=== PATIENT | male | born 2005 | race African-American/Black ===

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

== ENCOUNTER 2023-01-31 13:56 | Emergency (ER) | payer OTHER, SELFPAY ==
[2023-01-31 14:40] LABS: Bilirubin Negative (Negative); Blood, Urine 1+ (Negative); CAUTI Indications for Culture Dysuria,urgency,freq; Clarity Extra Turbid (Clear); Glucose, Urine (Dipstick) Normal (Negative); Ketone, Urine Negative (Negative); Leukocyte 500 Leu/uL (Negative); Nitrite Negative (Negative); Protein, Urine (Dipstick) 50 mg/dL (Neg-Trace); RBC/HPF 21-50 HPF (0-3); Specific Gravity, Urine 1.034 (1.002-1.036); Squamous Epithelial None Seen HPF (0-3); Urobilinogen Normal mg/dL (Less than 2); WBC/HPF Greater than 50 HPF (0-3); pH, Urine 5.5 (5.0-9.0)
[2023-01-31 14:46] LABS: Bacteria/HPF 2+ HPF (None Seen)
[2023-01-31 14:47] LABS: Urine Culture Reflex Yes Yes
[2023-01-31] MEDS ORDERED: Azithromycin 250 MG TAB ONE (15:00)
[2023-01-31] MEDS ORDERED: Lidocaine 1% MPF 2 ML VIAL ONE (15:00)
[2023-01-31] MEDS ORDERED: cefTRIAXone (ROCEPHIN) 500 MG VIAL ONE (15:01)
[2023-02-01 17:04] LABS: Chlam.trachomatis by PCR,Urine DETECTED (NotDetected); GC N.gonorrhoeae PCR,UrineVOID DETECTED (NotDetected)
== END 2023-01-31 15:39 | disposition home or self-care (01) ==
LOC: ERS 13:56
DX: N34.2 Other urethritis (principal)
CPT/HCPCS: 81001; 87086; 87491; 87591; 96372; 99283; J0696

== ENCOUNTER 2024-02-22 16:01 | Emergency (ER) | payer SELFPAY ==
[2024-02-22] MEDS ORDERED: cefTRIAXone (ROCEPHIN) 500 MG VIAL ONE (16:27)
[2024-02-22] MEDS ORDERED: Lidocaine 1% PF 5 ML VIAL ONE (16:27)
[2024-02-22 23:22] LABS: Chlam.trachomatis by PCR,Urine Not Detected (NotDetected); GC N.gonorrhoeae PCR,UrineVOID DETECTED (NotDetected)
== END 2024-02-22 16:32 | disposition home or self-care (01) ==
LOC: ERS 16:01
DX: R30.0 Dysuria (principal); R36.9 Urethral discharge, unspecified; Z55.0 Illiteracy and low-level literacy
CPT/HCPCS: 87491; 87591; 96372; 99284; J0696